=== PATIENT | male | born 1960 | race Two or more races ===

== ENCOUNTER 2017-01-17 13:05 | Inpatient (IN) | payer MEDICARE, MEDICAID ==
[~2017-01-17] VITALS: Ht 167.6 cm; Wt 74.8 kg
[2017-01-17] MEDS ORDERED: IV NS 0.9% 1,000 ML BAG IV ONE (13:30)
[2017-01-17] MEDS ORDERED: IV SET PRIMARY PUMP SET 1 EA INFUS.SET MC ONE ×2 (13:53→15:34)
[2017-01-17] MEDS ORDERED: IV NS 0.9% 1,000 ML ONE (13:53)
[2017-01-17 13:58] LABS: BASOPHILS # (AUTO) 0.1 /CMM (0.0-0.2); BASOPHILS % (AUTO) 1.5 % (0.0-2.0); DIFF TOTAL % 100 %; EOSINOPHILS # (AUTO) 0.2 /CMM (0.0-0.7); HEMATOCRIT 36 % (39-51); HEMOGLOBIN 11.8 g/dL (13.5-17.5); LYMPHOCYTES # (AUTO) 0.6 /CMM (0.8-4.8); LYMPHOCYTES % (AUTO) 7.7 % (20.0-44.0); MEAN CORPUSCULAR HEMOGLOBIN 31 PG (26.0-33.0); MEAN CORPUSCULAR HGB CONC 33 g/dl (31.0-36.0); MEAN CORPUSCULAR VOLUME 96 fL (80-96); MONOCYTES # (AUTO) 0.4 /CMM (0.1-1.30); MONOCYTES % (AUTO) 4.6 % (2.0-12.0); NEUTROPHILS # (AUTO) 6.8 /CMM (1.8-8.9); NEUTROPHILS % (AUTO) 84.2 % (43.0-81.0); PLATELET COUNT (AUTO) 127 /CMM (150-450); RED BLOOD CELL COUNT(AUTO) 3.76 MIL/uL (4.5-6.0); WHITE BLOOD COUNT (AUTO) 8.1 K/uL (4.3-11.0)
[2017-01-17 14:34] LABS: ANION GAP 17 (5-14); CALCIUM, SERUM 7.3 mg/dL (8.5-10.1); CARBON DIOXIDE 25 mmol/L (21-32); CHLORIDE 101 mmol/L (98-107); CREATININE 6.3 mg/dL (0.6-1.3); GFR 9 mL/min (>60); GLUCOSE 84 mg/dL (74-106); SODIUM SERUM 139 mmol/L (136-145); UREA NITROGEN, BLOOD 33 mg/dL (7-18)
[2017-01-17 14:38] LABS: INR 1.45 (0.87-1.13); PROTHROMBIN TIME 15.2 SECS (9.5-12.7)
[2017-01-17 14:44] LABS: ALANINE AMINOTRANSFERASE < 6 U/L (12-78); ALBUMIN 3.8 g/dL (3.4-5.0); ASPARTATE AMINOTRANSFERASE 17 U/L (15-37); BILIRUBIN,DIRECT 0.5 mg/dL (0.0-0.2); INDIRECT BILIRUBIN 0.5 mg/dL (0.0-1.1); TOTAL PROTEIN, SERUM 7.2 g/dL (6.4-8.2)
[2017-01-17 14:55] LABS: TROPONIN I 0.044 ng/mL (0.00-0.056)
[2017-01-17] MEDS ORDERED: CEFEPIME 1 GM in IV D5W 50 ML IV ONE (15:30)
[2017-01-17] MEDS ORDERED: IV NS 0.9% 500 ML BAG IV ONE (15:30)
[2017-01-17] MEDS: VANCOMYCIN 1 GM in IV D5W 250 ML IV ONE ×2 (15:33→16:15)
[2017-01-17] MEDS ORDERED: CALC667C6 GT (15:53)
[2017-01-17] MEDS ORDERED: OMEP20TA68 PO (15:53)
[2017-01-17] MEDS ORDERED: SEVE800T8 GT (15:53)
[2017-01-17] MEDS ORDERED: TRAM50TA2 GT (15:53)
[2017-01-17] MEDS ORDERED: ATOR20TA GT (15:53)
[2017-01-17] MEDS ORDERED: LEVO200T8 PO (15:53)
[2017-01-17] MEDS ORDERED: CARV3.122 GT (15:53)
[2017-01-17] MEDS ORDERED: LACT1CAP69 GT (15:53)
[2017-01-17] MEDS ORDERED: FOLI1TAB16 GT (15:53)
[2017-01-17] MEDS ORDERED: DOCU50LI GT (15:53)
[2017-01-17] MEDS ORDERED: WARF2TAB57 PO (15:53)
[2017-01-17] MEDS ORDERED: IPRA3AMP NEB ×2 (15:53)
[2017-01-17] MEDS ORDERED: CYAN500T2 PO (15:53)
[2017-01-17] MEDS ORDERED: LISI2.5T2 PO (15:53)
[2017-01-17] MEDS ORDERED: CHOL10002 GT (15:53)
[2017-01-17] MEDS ORDERED: ONDANSETRON HCL/PF 4 MG/2 ML VIAL IVP PRN (16:00)
[2017-01-17] MEDS ORDERED: ACETAMINOPHEN 650 MG/SUPP.RECT RC PRN (16:00)
[2017-01-17 17:00] VITALS: BP 105/59
[2017-01-17] MEDS: DOCUSATE SODIUM LIQ 100 MG/10 ML UDC GT SCH (17:00)
[2017-01-17] MEDS ORDERED: IPRATROPIUM NEB FS 0.5 MG/2.5 ML AMPUL.NEB NEB PRN (17:30)
[2017-01-17] MEDS ORDERED: ALBUTEROL FS 2.5 MG/3 ML VIAL.NEB NEB PRN (17:30)
[2017-01-17] MEDS ORDERED: WARFARIN SODIUM 1 MG TABLET PO ONE ×2 (17:38→18:00)
[2017-01-17] MEDS ORDERED: FEE PK DOSING 1 MIN EA MC ONE (17:45)
[2017-01-17] MEDS ORDERED: SEVELAMER CARBONATE 800 MG TABLET PO SCH (18:00)
[2017-01-17] MEDS ORDERED: CEFEPIME 1 GM in IV D5W 50 ML IV PRN (18:00)
[2017-01-17] MEDS: TRAMADOL HCL 50 MG TABLET GT SCH (18:11)
[2017-01-17] MEDS: CALCIUM ACETATE 667 MG TABLET PO SCH (18:11)
[2017-01-17] MEDS: CHOLECALCIFEROL 1,000 UNIT TABLET (VIT D3) GT SCH (18:11)
[2017-01-17 20:51] VITALS: BP 94/56
[2017-01-17] MEDS ORDERED: CARVEDILOL 3.125 MG TABLET GT SCH (21:00)
[2017-01-17 22:00] VITALS: BP 94/56
[2017-01-17] MEDS ORDERED: ATORVASTATIN 10 MG TABLET GT SCH (22:00)
[2017-01-18] VITALS: BP 99/58
[2017-01-18] MEDS ORDERED: RENAL NOVASOURCE 1,000 ML BOTTLE GT SCH (01:30)
[2017-01-18] MEDS ORDERED: RENAL NOVASOURCE 1,000 ML BOTTLE ONE (02:27)
[2017-01-18 04:00] VITALS: BP 96/55
[2017-01-18 04:32] VITALS: BP 96/55
[2017-01-18 07:37] LABS: BASOPHILS % (AUTO) 0.4 % (0.0-2.0); DIFF TOTAL % 100 %; EOSINOPHILS # (AUTO) 0.1 /CMM (0.0-0.7); EOSINOPHILS % (AUTO) 1.3 % (0.0-6.0); HEMATOCRIT 30 % (39-51); HEMOGLOBIN 9.9 g/dL (13.5-17.5); LYMPHOCYTES # (AUTO) 0.6 /CMM (0.8-4.8); LYMPHOCYTES % (AUTO) 8.2 % (20.0-44.0); MEAN CORPUSCULAR HEMOGLOBIN 31 PG (26.0-33.0); MEAN CORPUSCULAR HGB CONC 33 g/dl (31.0-36.0); MEAN CORPUSCULAR VOLUME 96 fL (80-96); MONOCYTES # (AUTO) 0.4 /CMM (0.1-1.30); MONOCYTES % (AUTO) 6.1 % (2.0-12.0); NEUTROPHILS # (AUTO) 6.1 /CMM (1.8-8.9); PLATELET COUNT (AUTO) 104 /CMM (150-450); RED BLOOD CELL COUNT(AUTO) 3.16 MIL/uL (4.5-6.0); WHITE BLOOD COUNT (AUTO) 7.2 K/uL (4.3-11.0)
[2017-01-18 07:50] LABS: CALCIUM, SERUM 6.8 mg/dL (8.5-10.1); CREATININE 6.9 mg/dL (0.6-1.3); PHOSPHORUS 3.5 mg/dL (2.5-4.9); POTASSIUM 3.7 mmol/L (3.5-5.1)
[2017-01-18 07:57] LABS: INR 1.54 (0.87-1.13); PROTHROMBIN TIME 16.7 SECS (9.5-12.7)
[2017-01-18 08:00] VITALS: BP 102/66
[2017-01-18] MEDS: FLUCONAZOLE (100 MG) 100 MG TABLET PO SCH (08:51)
[2017-01-18] MEDS: FOLIC ACID 1 MG TABLET GT SCH (08:51)
[2017-01-18] MEDS: CYANOCOBALAMIN 500 MCG TABLET PO SCH (08:51)
[2017-01-18] MEDS: CALCIUM ACETATE 667 MG TABLET PO SCH ×3 (08:51→18:56)
[2017-01-18] MEDS: DOCUSATE SODIUM LIQ 100 MG/10 ML UDC GT SCH ×2 (08:52→18:56)
[2017-01-18] MEDS: CHOLECALCIFEROL 1,000 UNIT TABLET (VIT D3) GT SCH ×2 (08:52→18:56)
[2017-01-18] MEDS: NYSTATIN (PYXIS) 500,000 UNIT/5 ML ORAL.SUSP PO SCH ×3 (08:52→18:56)
[2017-01-18] MEDS: LACTOBACILLUS RHAMNOSUS GG 1 EACH CAP.SPRINK PO SCH (08:52)
[2017-01-18] MEDS: TRAMADOL HCL 50 MG TABLET GT SCH ×2 (08:52→18:56)
[2017-01-18] MEDS: LEVOTHYROXINE SODIUM 100 MCG TABLET GT SCH (08:52)
[2017-01-18] MEDS ORDERED: SEVELAMER CARBONATE 0.8 GM POWD.PACK GT SCH ×2 (09:00→18:00)
[2017-01-18] MEDS ORDERED: FOLIC ACID 1 MG TABLET GT SCH (09:00)
[2017-01-18 09:06] LABS: THYROID STIMULATING HORMONE 8.95 uIU/mL (0.358-3.74)
[2017-01-18] MEDS: Z GUARD REMEDY 2 OZ OINT TP SCH (13:02)
[2017-01-18] MEDS: IPRATROPIUM NEB FS 0.5 MG/2.5 ML AMPUL.NEB NEB SCH ×4 (14:25→23:03)
[2017-01-18] MEDS: ALBUTEROL FS 2.5 MG/3 ML VIAL.NEB NEB SCH ×4 (14:26→23:03)
[2017-01-18 14:59] LABS: ABG BASE EXCESS -0.2 mmol/L; ABG HCO3 25.7 mmol/L; ABG PCO2 47.1 mmHg (35.0-45.0); ABG PH 7.354 (7.350-7.450); ABG TOTAL HEMOGLOBIN 10.6 G/dL (13.5-18.0); ALLEN TEST Pass; O2Hb 95.2 % (94.0-97.0)
[2017-01-18] MEDS ORDERED: EPOETIN ALFA (10,000 UNIT) 10,000 UNIT/ML VIAL SQ ONE (15:00)
[2017-01-18 16:00] VITALS: BP 92/55
[2017-01-18] MEDS ORDERED: VANCOMYCIN 1 GM in IV D5W 250 ML IV PRN (16:00)
[2017-01-18] MEDS ORDERED: ALBUMIN 25% 12.5 GM/50 ML BOTTLE IV STA (17:02)
[2017-01-18] MEDS: VANCOMYCIN 500 MG in IV D5W 100 ML IV PRN (17:22)
[2017-01-18] MEDS ORDERED: ALBUMIN 25% 25 GM in PREMIX 1 EA IV PRN (17:30)
[2017-01-18] MEDS: WARFARIN SODIUM 2 MG TABLET PO SCH (18:57)
[2017-01-18 20:00] VITALS: BP 92/53
[2017-01-18] MEDS ORDERED: IV SET PRIMARY PUMP SET 1 EA INFUS.SET MC ONE (21:19)
[2017-01-18] MEDS: HEPARIN INFUSION/D5W 500 ML IV PRN (21:28)
[2017-01-19] MEDS: ALBUTEROL FS 2.5 MG/3 ML VIAL.NEB NEB SCH ×6 (02:53→23:28)
[2017-01-19] MEDS: IPRATROPIUM NEB FS 0.5 MG/2.5 ML AMPUL.NEB NEB SCH ×6 (02:53→23:28)
[2017-01-19] MEDS ORDERED: RENAL NOVASOURCE 1,000 ML BOTTLE ONE (04:09)
[2017-01-19] MEDS: RENAL NOVASOURCE 1,000 ML BOTTLE GT SCH (04:19)
[2017-01-19 05:01] LABS: BASOPHILS % (AUTO) 0.6 % (0.0-2.0); DIFF TOTAL % 100 %; EOSINOPHILS # (AUTO) 0.1 /CMM (0.0-0.7); EOSINOPHILS % (AUTO) 1.8 % (0.0-6.0); HEMATOCRIT 30 % (39-51); HEMOGLOBIN 9.9 g/dL (13.5-17.5); LYMPHOCYTES # (AUTO) 0.7 /CMM (0.8-4.8); LYMPHOCYTES % (AUTO) 12.5 % (20.0-44.0); MEAN CORPUSCULAR HEMOGLOBIN 31 PG (26.0-33.0); MEAN CORPUSCULAR HGB CONC 33 g/dl (31.0-36.0); MEAN CORPUSCULAR VOLUME 95 fL (80-96); MONOCYTES # (AUTO) 0.6 /CMM (0.1-1.30); NEUTROPHILS # (AUTO) 4.5 /CMM (1.8-8.9); NEUTROPHILS % (AUTO) 75.1 % (43.0-81.0); PLATELET COUNT (AUTO) 132 /CMM (150-450); RED BLOOD CELL COUNT(AUTO) 3.19 MIL/uL (4.5-6.0); WHITE BLOOD COUNT (AUTO) 5.9 K/uL (4.3-11.0)
[2017-01-19 05:33] LABS: CALCIUM, SERUM 6.9 mg/dL (8.5-10.1); CREATININE 5.5 mg/dL (0.6-1.3); PHOSPHORUS 2.3 mg/dL (2.5-4.9); POTASSIUM 3.1 mmol/L (3.5-5.1)
[2017-01-19 05:34] LABS: INR 1.92 (0.87-1.13); PROTHROMBIN TIME 20.9 SECS (9.5-12.7)
[2017-01-19 08:00] VITALS: BP 110/66
[2017-01-19] MEDS: LACTOBACILLUS RHAMNOSUS GG 1 EACH CAP.SPRINK PO SCH (08:58)
[2017-01-19] MEDS: CALCIUM ACETATE 667 MG TABLET PO SCH ×3 (08:59→18:06)
[2017-01-19] MEDS: CHOLECALCIFEROL 1,000 UNIT TABLET (VIT D3) GT SCH ×2 (08:59→18:06)
[2017-01-19] MEDS: LEVOTHYROXINE SODIUM 100 MCG TABLET GT SCH (08:59)
[2017-01-19] MEDS: DOCUSATE SODIUM LIQ 100 MG/10 ML UDC GT SCH ×2 (08:59→18:06)
[2017-01-19] MEDS: NYSTATIN (PYXIS) 500,000 UNIT/5 ML ORAL.SUSP PO SCH ×3 (08:59→18:06)
[2017-01-19] MEDS: FLUCONAZOLE (100 MG) 100 MG TABLET PO SCH (09:00)
[2017-01-19] MEDS: FOLIC ACID 1 MG TABLET GT SCH (09:00)
[2017-01-19] MEDS: CYANOCOBALAMIN 500 MCG TABLET PO SCH (09:00)
[2017-01-19] MEDS: TRAMADOL HCL 50 MG TABLET GT SCH ×2 (09:02→17:00)
[2017-01-19] MEDS: Z GUARD REMEDY 2 OZ OINT TP SCH (09:03)
[2017-01-19] MEDS ORDERED: POTASSIUM CHLORIDE 20 MEQ POWDER PACKET GT ONE (10:30)
[2017-01-19] MEDS ORDERED: SECONDARY IV SET 1 EA INFUS.SET MC ONE (13:22)
[2017-01-19 13:43] LABS: INR 1.68 (0.87-1.13); PROTHROMBIN TIME 18.2 SECS (9.5-12.7)
[2017-01-19] MEDS ORDERED: HEPARIN SODIUM, PORCINE 5000 UNITS/1 ML VIAL IV ONE (15:00)
[2017-01-19 16:00] VITALS: BP 120/58
[2017-01-19] MEDS: WARFARIN SODIUM 2 MG TABLET PO SCH (18:08)
[2017-01-19 20:54] VITALS: BP 100/63
[2017-01-19 22:02] LABS: INR 1.7 (0.87-1.13); PROTHROMBIN TIME 18.5 SECS (9.5-12.7)
[2017-01-19] MEDS: HEPARIN INFUSION/D5W 500 ML IV PRN (23:32)
[2017-01-20] MEDS: IPRATROPIUM NEB FS 0.5 MG/2.5 ML AMPUL.NEB NEB SCH ×6 (03:52→23:33)
[2017-01-20] MEDS: ALBUTEROL FS 2.5 MG/3 ML VIAL.NEB NEB SCH ×6 (03:52→23:33)
[2017-01-20 06:32] LABS: BASOPHILS # (AUTO) 0.1 /CMM (0.0-0.2); DIFF TOTAL % 100 %; EOSINOPHILS # (AUTO) 0.2 /CMM (0.0-0.7); EOSINOPHILS % (AUTO) 2.7 % (0.0-6.0); HEMATOCRIT 32 % (39-51); HEMOGLOBIN 10.4 g/dL (13.5-17.5); LYMPHOCYTES # (AUTO) 0.7 /CMM (0.8-4.8); LYMPHOCYTES % (AUTO) 11.5 % (20.0-44.0); MEAN CORPUSCULAR HEMOGLOBIN 32 PG (26.0-33.0); MEAN CORPUSCULAR HGB CONC 33 g/dl (31.0-36.0); MEAN CORPUSCULAR VOLUME 96 fL (80-96); MONOCYTES # (AUTO) 0.6 /CMM (0.1-1.30); MONOCYTES % (AUTO) 10.3 % (2.0-12.0); NEUTROPHILS # (AUTO) 4.5 /CMM (1.8-8.9); NEUTROPHILS % (AUTO) 74.5 % (43.0-81.0); PLATELET COUNT (AUTO) 154 /CMM (150-450); WHITE BLOOD COUNT (AUTO) 6.1 K/uL (4.3-11.0)
[2017-01-20 06:45] LABS: CALCIUM, SERUM 7.6 mg/dL (8.5-10.1); CREATININE 6.6 mg/dL (0.6-1.3); PHOSPHORUS 2.4 mg/dL (2.5-4.9); POTASSIUM 3.1 mmol/L (3.5-5.1)
[2017-01-20 06:49] LABS: INR 1.69 (0.87-1.13); PROTHROMBIN TIME 18.4 SECS (9.5-12.7)
[2017-01-20 08:00] VITALS: BP 136/57
[2017-01-20] MEDS: NYSTATIN (PYXIS) 500,000 UNIT/5 ML ORAL.SUSP PO SCH ×3 (08:31→16:41)
[2017-01-20] MEDS: CALCIUM ACETATE 667 MG TABLET PO SCH ×3 (08:31→18:57)
[2017-01-20] MEDS: LACTOBACILLUS RHAMNOSUS GG 1 EACH CAP.SPRINK PO SCH (08:31)
[2017-01-20] MEDS: DOCUSATE SODIUM LIQ 100 MG/10 ML UDC GT SCH ×2 (08:31→16:41)
[2017-01-20] MEDS: FLUCONAZOLE (100 MG) 100 MG TABLET PO SCH (08:31)
[2017-01-20] MEDS: TRAMADOL HCL 50 MG TABLET GT SCH ×2 (08:31→16:41)
[2017-01-20] MEDS: FOLIC ACID 1 MG TABLET GT SCH (08:31)
[2017-01-20] MEDS: LEVOTHYROXINE SODIUM 100 MCG TABLET GT SCH (08:32)
[2017-01-20] MEDS: CYANOCOBALAMIN 500 MCG TABLET PO SCH (08:32)
[2017-01-20] MEDS: CHOLECALCIFEROL 1,000 UNIT TABLET (VIT D3) GT SCH ×2 (08:32→16:41)
[2017-01-20] MEDS: Z GUARD REMEDY 2 OZ OINT TP SCH (08:35)
[2017-01-20] MEDS ORDERED: POTASSIUM CHLORIDE 20 MEQ POWDER PACKET GT ONE (12:00)
[2017-01-20] MEDS ORDERED: BISACODYL SUPP (10 MG) 10 MG/SUPP.RECT SUPP.RECT RC PRN (15:30)
[2017-01-20 16:00] VITALS: BP 109/67
[2017-01-20] MEDS: WARFARIN SODIUM 2 MG TABLET PO SCH (16:43)
[2017-01-20 20:00] VITALS: BP 110/65
[2017-01-20] MEDS: RENAL NOVASOURCE 1,000 ML BOTTLE GT SCH (21:15)
[2017-01-20] MEDS: HEPARIN INFUSION/D5W 500 ML IV PRN (23:59)
[2017-01-21] MEDS: IPRATROPIUM NEB FS 0.5 MG/2.5 ML AMPUL.NEB NEB SCH ×6 (03:58→22:46)
[2017-01-21] MEDS: ALBUTEROL FS 2.5 MG/3 ML VIAL.NEB NEB SCH ×6 (03:58→22:46)
[2017-01-21 07:50] LABS: INR 1.96 (0.87-1.13); PROTHROMBIN TIME 21.3 SECS (9.5-12.7)
[2017-01-21 08:00] VITALS: BP 96/64
[2017-01-21] MEDS: DOCUSATE SODIUM LIQ 100 MG/10 ML UDC GT SCH ×3 (08:18→17:00)
[2017-01-21] MEDS: LACTOBACILLUS RHAMNOSUS GG 1 EACH CAP.SPRINK PO SCH (08:18)
[2017-01-21] MEDS: CYANOCOBALAMIN 500 MCG TABLET PO SCH (08:19)
[2017-01-21] MEDS: FOLIC ACID 1 MG TABLET GT SCH (08:19)
[2017-01-21] MEDS: LEVOTHYROXINE SODIUM 100 MCG TABLET GT SCH (08:19)
[2017-01-21] MEDS: CALCIUM ACETATE 667 MG TABLET PO SCH ×2 (08:19→17:06)
[2017-01-21] MEDS: CHOLECALCIFEROL 1,000 UNIT TABLET (VIT D3) GT SCH ×2 (08:19→16:36)
[2017-01-21] MEDS: NYSTATIN (PYXIS) 500,000 UNIT/5 ML ORAL.SUSP PO SCH ×3 (08:20→16:30)
[2017-01-21] MEDS: TRAMADOL HCL 50 MG TABLET GT SCH ×3 (08:20→17:00)
[2017-01-21] MEDS: FLUCONAZOLE (100 MG) 100 MG TABLET PO SCH (09:27)
[2017-01-21] MEDS: Z GUARD REMEDY 2 OZ OINT TP SCH (09:28)
[2017-01-21] MEDS ORDERED: IV NS 0.9% 250 ML IV ONE (15:13)
[2017-01-21] MEDS ORDERED: IV SET PRIMARY PUMP SET 1 EA INFUS.SET MC ONE ×2 (15:13→20:52)
[2017-01-21] MEDS ORDERED: SECONDARY IV SET 1 EA INFUS.SET MC ONE ×2 (15:13→17:23)
[2017-01-21 16:00] VITALS: BP 100/70
[2017-01-21] MEDS: WARFARIN SODIUM 2 MG TABLET PO SCH (16:36)
[2017-01-21] MEDS: VANCOMYCIN 500 MG in IV D5W 100 ML IV PRN (16:59)
[2017-01-21] MEDS: POTASSIUM CHLORIDE 20 MEQ TAB.PRT.SR PO SCH (18:30)
[2017-01-21 20:00] VITALS: BP 107/70
[2017-01-21 22:00] VITALS: BP 107/70
[2017-01-21] MEDS: RENAL NOVASOURCE 1,000 ML BOTTLE GT SCH (23:50)
[2017-01-21] MEDS: HEPARIN INFUSION/D5W 500 ML IV PRN (23:55)
[2017-01-22 02:00] VITALS: BP 104/64
[2017-01-22] MEDS: IPRATROPIUM NEB FS 0.5 MG/2.5 ML AMPUL.NEB NEB SCH ×6 (03:13→23:03)
[2017-01-22] MEDS: ALBUTEROL FS 2.5 MG/3 ML VIAL.NEB NEB SCH ×6 (03:13→23:03)
[2017-01-22] MEDS ORDERED: IV NS 0.9% 250 ML IV ONE (04:01)
[2017-01-22 06:50] LABS: CALCIUM, SERUM 7.3 mg/dL (8.5-10.1); POTASSIUM 3.6 mmol/L (3.5-5.1)
[2017-01-22 07:01] LABS: INR 2.46 (0.87-1.13); PROTHROMBIN TIME 26.8 SECS (9.5-12.7)
[2017-01-22 08:00] VITALS: BP 135/76
[2017-01-22] MEDS: FLUCONAZOLE (100 MG) 100 MG TABLET PO SCH (09:02)
[2017-01-22] MEDS: LACTOBACILLUS RHAMNOSUS GG 1 EACH CAP.SPRINK PO SCH (09:03)
[2017-01-22] MEDS: LEVOTHYROXINE SODIUM 100 MCG TABLET GT SCH (09:03)
[2017-01-22] MEDS: CALCIUM ACETATE 667 MG TABLET PO SCH ×2 (09:04→17:00)
[2017-01-22] MEDS: POTASSIUM CHLORIDE 20 MEQ TAB.PRT.SR PO SCH (09:04)
[2017-01-22] MEDS: TRAMADOL HCL 50 MG TABLET GT SCH ×2 (09:04→17:00)
[2017-01-22] MEDS: CYANOCOBALAMIN 500 MCG TABLET PO SCH (09:04)
[2017-01-22] MEDS: CHOLECALCIFEROL 1,000 UNIT TABLET (VIT D3) GT SCH ×2 (09:04→17:01)
[2017-01-22] MEDS: FOLIC ACID 1 MG TABLET GT SCH (09:04)
[2017-01-22] MEDS: NYSTATIN (PYXIS) 500,000 UNIT/5 ML ORAL.SUSP PO SCH ×3 (09:05→17:01)
[2017-01-22] MEDS: Z GUARD REMEDY 2 OZ OINT TP SCH (09:05)
[2017-01-22] MEDS: DOCUSATE SODIUM LIQ 100 MG/10 ML UDC GT SCH ×2 (09:05→17:01)
[2017-01-22] MEDS: WARFARIN SODIUM 2 MG TABLET PO SCH (17:01)
[2017-01-22 22:00] VITALS: BP 124/67
[2017-01-23] MEDS: ALBUTEROL FS 2.5 MG/3 ML VIAL.NEB NEB SCH ×4 (03:16→16:01)
[2017-01-23] MEDS: IPRATROPIUM NEB FS 0.5 MG/2.5 ML AMPUL.NEB NEB SCH ×4 (03:16→16:01)
[2017-01-23 07:01] LABS: INR 3.38 (0.87-1.13)
[2017-01-23 07:10] LABS: CALCIUM, SERUM 7.5 mg/dL (8.5-10.1); CREATININE 5.8 mg/dL (0.6-1.3); POTASSIUM 3.7 mmol/L (3.5-5.1)
[2017-01-23] MEDS: DOCUSATE SODIUM LIQ 100 MG/10 ML UDC GT SCH (08:25)
[2017-01-23] MEDS: LACTOBACILLUS RHAMNOSUS GG 1 EACH CAP.SPRINK PO SCH (08:25)
[2017-01-23] MEDS: FLUCONAZOLE (100 MG) 100 MG TABLET PO SCH (08:25)
[2017-01-23] MEDS: CALCIUM ACETATE 667 MG TABLET PO SCH (08:25)
[2017-01-23] MEDS: FOLIC ACID 1 MG TABLET GT SCH (08:25)
[2017-01-23] MEDS: CYANOCOBALAMIN 500 MCG TABLET PO SCH (08:26)
[2017-01-23] MEDS: POTASSIUM CHLORIDE 20 MEQ TAB.PRT.SR PO SCH (08:26)
[2017-01-23] MEDS: LEVOTHYROXINE SODIUM 100 MCG TABLET GT SCH (08:26)
[2017-01-23] MEDS: CHOLECALCIFEROL 1,000 UNIT TABLET (VIT D3) GT SCH (08:26)
[2017-01-23] MEDS: NYSTATIN (PYXIS) 500,000 UNIT/5 ML ORAL.SUSP PO SCH ×2 (08:26→14:06)
[2017-01-23] MEDS: TRAMADOL HCL 50 MG TABLET GT SCH (08:27)
[2017-01-23] MEDS: Z GUARD REMEDY 2 OZ OINT TP SCH (08:44)
[2017-01-23 16:00] VITALS: BP 108/70
== END 2017-01-23 16:50 | DRG 871 ==
LOC: ER 13:08 → TELE 16:34 → MED 01-18 09:03
PROVIDERS: ADMIT Nurse Practitioner Acute Care; ATTEND Nurse Practitioner Acute Care
PROC: 5A1D60Z (ICD-10-PCS; principal; 2017-01-18)
DX: A41.9 Sepsis, unspecified organism (principal); N18.6 End stage renal disease; J15.9 Unspecified bacterial pneumonia; J15.6 Pneumonia due to other Gram-negative bacteria; I50.23 Acute on chronic systolic (congestive) heart failure; I13.2 Hypertensive heart and chronic kidney disease with heart failure and with stage 5 chronic kidney disease, or end stage renal disease; J96.11 Chronic respiratory failure with hypoxia; E87.1 Hypo-osmolality and hyponatremia; Z99.2 Dependence on renal dialysis; R13.10 Dysphagia, unspecified; Z93.0 Tracheostomy status; Z93.1 Gastrostomy status; I25.10 Atherosclerotic heart disease of native coronary artery without angina pectoris; Z95.2 Presence of prosthetic heart valve; E78.5 Hyperlipidemia, unspecified; D63.8 Anemia in other chronic diseases classified elsewhere; D69.6 Thrombocytopenia, unspecified; I95.9 Hypotension, unspecified; E83.51 Hypocalcemia; Z79.01 Long term (current) use of anticoagulants; E89.0 Postprocedural hypothyroidism; E87.6 Hypokalemia; I07.1 Rheumatic tricuspid insufficiency; I27.2 Other secondary pulmonary hypertension; Z87.891 Personal history of nicotine dependence; Z95.1 Presence of aortocoronary bypass graft
CPT/HCPCS: 31720; 36415; 36600; 71010-TC; 80048-TC; 80061-TC; 80076-TC; 80202-TC; 83540-TC; 83605-TC; 83735-TC; 84100-TC; 84443-TC; 84484-TC; 85025-TC; 85610-TC; 85730-TC; 87040-TC; 87081-TC; 90935-TC; 93307-TC; 94640-TC; 94799-TC; 97001-TC; A4216; A4606; A4623; A6403; A7526; J0692; J0885; J1644; J3370; J7030; J7050; J7060; P9047; Z7610